=== PATIENT | female | born 1935 | race African-American/Black ===

== ENCOUNTER 2020-11-27 09:34 | Inpatient (IN) ==
[2020-11-27 10:35] LABS: Basophils % 0.5 % (0.0-0.8); Eosinophils # 0.1 10*3/uL (0.0-0.87); Eosinophils % 1.6 % (0.00-10.9); Hematocrit 44.6 VOL% (35.7-47.0); Hemoglobin 14.2 GM/DL (12.0-16.0); Immature Granulocytes % 0.2 %; Immature Granulocytes Absolute 0.01 #; Lymphocytes # 1.2 10*3/uL (1.4-4.0); Lymphocytes % 27.1 % (21.3-54.2); Mean Corpuscular HGB Conc 31.8 GM/DL (32-36); Mean Corpuscular Volume 85.3 FL (87-102); Mean Platelet Volume 11.2 FL (9.6-12.0); Monocytes % 6.7 % (1.7-12.7); Neutrophils % 63.9 % (38.7-73.9); Platelet Count 149 T/CUMM (130-400); Red Blood Count 5.23 MC/CUMM (3.8-5.5); Red Cell Distribution Width 14.6 % (9.3-17.3); White Blood Count 4.3 T/CUMM (4-12)
[2020-11-27 10:46] LABS: PT Patient Result 11.6 SECS (10.5-12.0); Partial Thromboplastin Time 24.6 SECS (23.9-33.8)
[2020-11-27 10:55] LABS: Albumin 4.1 G/DL (3.4-5.0); Bilirubin,Total 0.6 MG/DL (0.2-1.0); Calcium 9.6 MG/DL (8.5-10.1); Osmolality,Calculated 290.1 MOS/KG (273-304); Potassium 3.3 MMOL/L (3.5-5.1); Total Protein 7.3 G/DL (6.4-8.2)
[2020-11-27 11:40] LABS: Sedimentation Rate-Westergren 16 MM/HR (0-30)
[2020-11-27] MEDS ORDERED: ONDANSETRON 4 MG/2 ML VIAL IV PRN (13:01)
[2020-11-27] MEDS ORDERED: ACETAMINOPHEN 325 MG TABLET PO PRN (13:01)
[2020-11-27] MEDS ORDERED: DEXTROSE 50% 25 GM/50 ML VIAL IV PRN ×2 (13:01)
[2020-11-27] MEDS ORDERED: ZALEPLON 5 MG CAPSULE PO PRN (13:01)
[2020-11-27] MEDS ORDERED: GLUCAGON 1 MG VIAL IM PRN ×2 (13:01)
[2020-11-27] MEDS ORDERED: LABETALOL 20 MG/4 ML SYRINGE IV PRN (13:08)
[2020-11-27] MEDS ORDERED: CLOPIDOGREL 75 MG TABLET PO STA (13:08)
[2020-11-27] MEDS: ENOXAPARIN 40 MG/0.4 ML SYRINGE SUBCUT SCH (14:23)
[2020-11-27] MEDS ORDERED: POTASSIUM CHLORIDE 20 MEQ TABLET PO ONE (16:57)
[2020-11-27] MEDS: INSULIN LISPRO 100 UNIT/ML SUBCUT SCH ×2 (19:00→21:17)
[2020-11-27] MEDS: SODIUM CHLOR 0.9% KCL 20 MEQ 20 MEQ/1,000 ML BAG IV SCH (19:14)
[2020-11-28 06:05] LABS: Basophils % 0.5 % (0.0-0.8); Eosinophils # 0.1 10*3/uL (0.0-0.87); Eosinophils % 0.9 % (0.00-10.9); Hematocrit 42.7 VOL% (35.7-47.0); Hemoglobin 13.5 GM/DL (12.0-16.0); Immature Granulocytes % 0.4 %; Immature Granulocytes Absolute 0.02 #; Lymphocytes # 1.4 10*3/uL (1.4-4.0); Lymphocytes % 24.2 % (21.3-54.2); Mean Corpuscular HGB Conc 31.6 GM/DL (32-36); Mean Platelet Volume 11.4 FL (9.6-12.0); Monocytes % 6.6 % (1.7-12.7); Neutrophils % 67.4 % (38.7-73.9); Platelet Count 146 T/CUMM (130-400); Red Blood Count 4.91 MC/CUMM (3.8-5.5); Red Cell Distribution Width 14.6 % (9.3-17.3); White Blood Count 5.6 T/CUMM (4-12)
[2020-11-28 06:22] LABS: Albumin 3.2 G/DL (3.4-5.0); Bilirubin,Total 0.6 MG/DL (0.2-1.0); Calcium 9.1 MG/DL (8.5-10.1); Osmolality,Calculated 291.7 MOS/KG (273-304); Potassium 3.8 MMOL/L (3.5-5.1); Risk Ratio 2.33; Thyroid Stimulating Hormone 1.04 uIU/ml (0.358-3.74); Total Protein 6.5 G/DL (6.4-8.2); VLDL CHOLESTEROL 14.6 MG/DL
[2020-11-28] MEDS: INSULIN LISPRO 100 UNIT/ML SUBCUT SCH ×4 (07:24→20:57)
[2020-11-28] MEDS: ATORVASTATIN 40 MG TABLET PO SCH (08:39)
[2020-11-28] MEDS: PANTOPRAZOLE 40 MG TABLET PO SCH (08:39)
[2020-11-28] MEDS: INSULIN NPH/REGULAR 70/30 100 UNIT/ML SUBCUT SCH (09:14)
[2020-11-28] MEDS: FLUTICASONE 50 MCG NASAL SPRAY 16 GM BOTTLE BOTH NARES SCH (09:14)
[2020-11-28] MEDS: predniSONE 20 MG TABLET PO SCH (11:51)
[2020-11-28] MEDS ORDERED: ENOXAPARIN 80 MG/0.8 ML SYRINGE SUBCUT SCH (14:00)
[2020-11-28] MEDS: ENOXAPARIN 40 MG/0.4 ML SYRINGE SUBCUT SCH (14:46)
[2020-11-28] MEDS: amLODIPine 5 MG TABLET PO SCH (14:52)
[2020-11-28] MEDS: SODIUM CHLOR 0.9% KCL 20 MEQ 20 MEQ/1,000 ML BAG IV SCH (14:52)
[2020-11-28] MEDS: valACYclovir 500 MG TABLET PO SCH ×2 (14:52→20:57)
[2020-11-28] MEDS: METOPROLOL TARTRATE 25 MG TABLET PO SCH (20:57)
[2020-11-29 05:07] LABS: Basophils % 0.2 % (0.0-0.8); Hematocrit 40.3 VOL% (35.7-47.0); Hemoglobin 12.8 GM/DL (12.0-16.0); Immature Granulocytes % 0.7 %; Immature Granulocytes Absolute 0.04 #; Lymphocytes # 0.8 10*3/uL (1.4-4.0); Lymphocytes % 14.8 % (21.3-54.2); Mean Corpuscular HGB Conc 31.8 GM/DL (32-36); Mean Corpuscular Volume 86.9 FL (87-102); Monocytes % 6.3 % (1.7-12.7); Platelet Count 154 T/CUMM (130-400); Red Blood Count 4.64 MC/CUMM (3.8-5.5); Red Cell Distribution Width 14.7 % (9.3-17.3); White Blood Count 5.7 T/CUMM (4-12)
[2020-11-29 05:51] LABS: Blood Urea Nitrogen 27 MG/DL (7-18); Calcium 8.7 MG/DL (8.5-10.1); Carbon Dioxide 26 MMOL/L (21-32); Estimated Glom Filtration Rate 51 ML/MIN; Glucose 183 MG/DL (74-106); Potassium 3.9 MMOL/L (3.5-5.1); Sodium 143 MMOL/L (136-145)
[2020-11-29] MEDS: predniSONE 20 MG TABLET PO SCH (08:34)
[2020-11-29] MEDS: valACYclovir 500 MG TABLET PO SCH (08:34)
[2020-11-29] MEDS: PANTOPRAZOLE 40 MG TABLET PO SCH (08:35)
[2020-11-29] MEDS: ATORVASTATIN 40 MG TABLET PO SCH (08:35)
[2020-11-29] MEDS: METOPROLOL TARTRATE 25 MG TABLET PO SCH (08:35)
[2020-11-29] MEDS: amLODIPine 5 MG TABLET PO SCH (08:35)
[2020-11-29] MEDS: FLUTICASONE 50 MCG NASAL SPRAY 16 GM BOTTLE BOTH NARES SCH (08:40)
[2020-11-29] MEDS ORDERED: ENOXAPARIN 40 MG/0.4 ML SYRINGE SUBCUT SCH (09:00)
[2020-11-29] MEDS ORDERED: ASPIRIN EC 81 MG TABLET PO SCH (09:00)
[2020-11-29] MEDS: INSULIN NPH/REGULAR 70/30 100 UNIT/ML SUBCUT SCH (09:09)
[2020-11-29] MEDS: INSULIN LISPRO 100 UNIT/ML SUBCUT SCH ×2 (09:09→12:00)
[2020-11-29 12:40] VITALS: BP 164/68
[2020-11-29] MEDS: SODIUM CHLOR 0.9% KCL 20 MEQ 20 MEQ/1,000 ML BAG IV SCH (14:39)
== END 2020-11-29 13:18 | disposition home health service (06) | DRG 74 ==
LOC: N.ED 09:34 → N.EDINP 13:01 → SUATTDRO 13:01 → N.EDINP 16:18 → N.TELES 16:24
PROVIDERS: ADMIT Internal Medicine; ATTEND Internal Medicine Geriatric Medicine